=== PATIENT | male | born 1970 | race Caucasian/White ===

== ENCOUNTER 2021-09-06 09:31 | Outpatient (REF) | payer OTHER, SELFPAY ==
[2021-09-06 11:13] LABS: MANUAL DIFF FLAG NO
[2021-09-06 11:16] LABS: Basophils Percent Auto 0.6 % (0-2); Eosinophils Absolute Auto 0.2 X10*3/uL (0.0-0.4); Eosinophils Percent Auto 2.3 % (0-4); Hematocrit 43.4 % (42.0-52.0); Hemoglobin 14.7 g/dl (14.0-18.0); Imm Gran Abs Auto 0.06 X10*3/uL (0.00-0.03); Imm Gran Pct Auto 0.8 % (0.0-0.4); Lymphocytes Absolute Auto 1.6 X10*3/uL (1.2-4.9); Lymphocytes Percent Auto 21.8 % (20-40); Mean Corpuscular HGB Conc 33.9 g/dl (31.0-36.0); Mean Corpuscular Hemoglobin 30.5 pg (27.0-33.0); Mean Platelet Volume 10.6 fL (9.4-12.4); Monocytes Absolute Auto 0.6 X10*3/uL (0.1-1.2); Monocytes Percent Auto 8.2 % (2-11); Neutrophils Absolute Auto 4.7 x10*3/uL (2.0-8.3); Neutrophils Percent Auto 66.3 % (45-73); Platelet Count 272 X10*3/uL (160-400); Red Blood Count 4.82 X10*6/uL (4.60-5.80); Red Cell Distribution Width 11.7 % (11.0-16.0); White Blood Count 7.1 X10*3/uL (4.8-10.8)
[2021-09-06 11:44] LABS: Alanine Aminotransferase 29 U/L (0-40); Albumin Level 4.2 g/dL (3.5-5.0); Alkaline Phosphatase 65 U/L (39-117); Anion Gap 11 (12-20); Aspartate Amino Transferase 22 U/L (5-37); Bilirubin Total 1.3 mg/dL (0.0-1.0); Blood Urea Nitrogen 11 mg/dL (9-16); Calcium 9.4 mg/dL (8.4-10.2); Carbon Dioxide 29 mmol/L (22-29); Chloride 104 mmol/L (96-108); Cholesterol 169 mg/dL; Estimated Glomerular Filt Rate > 60; Glucose Fasting 105 mg/dL (60-99); HDL Cholesterol 47 mg/dL; LDL Cholesterol Calculated 102 mg/dl; Sodium 140 mmol/L (135-145); Triglycerides 102 mg/dL
[2021-09-06 11:53] LABS: TSH reflex Free T4 0.86 uIU/mL (0.32-4.0)
== END 2021-09-06 09:32 | disposition home or self-care (01) ==
LOC: HO.HMGCLDS 09:31
PROVIDERS: Visit Provider Internal Medicine
DX: I10 Essential (primary) hypertension (principal); R07.9 Chest pain, unspecified; Z76.89 Persons encountering health services in other specified circumstances
CPT/HCPCS: 36415; 80053; 80061; 84443; 85025

== ENCOUNTER → 2021-09-29 13:25 | Outpatient (BNVA) | payer OTHER, SELFPAY | PROVIDERS: PCP Internal Medicine; Referring Provider Internal Medicine; Visit Provider Nurse Practitioner Family | DX: K51.90 Ulcerative colitis, unspecified, without complications (principal); I10 Essential (primary) hypertension; Z87.891 Personal history of nicotine dependence | CPT/HCPCS: 99202 ==

== ENCOUNTER 2021-12-01 10:42 | Day surgery (SDC) | payer OTHER, SELFPAY ==
--- NOTE | 2021-11-30 09:49 | HO.ANESPROP2 ---
Documented by User: Hilary Romero NP 11/30/21 09:51 HPI - Anesthesia Eval Consult details Narrative: 51yo M for Colonoscopy PMFSH Active Problems Active Problems: All Active Problems (Updated 11/27/21 @ 14:23 by Lupe Suarez, JOB) Colon cancer screening (Acute) Bilateral renal stones (Acute) Hypertension, essential (Acute) Establishing care with new doctor, encounter for (Acute) Chest pain (Acute) Dyspepsia (Acute) Impaired fasting blood sugar (Acute) Overweight (BMI 25.0-29.9) (Acute) Past Medical History Medical History Hypertension IBS (irritable bowel syndrome) Kidney stones On beta thanh at home Family History Family History Maternal Grandfather Heart attack Maternal Grandmother Heart attack Paternal Grandfather Cancer Other Mental health disorder Substance use disorder Surgical History Surgical History History of carpal tunnel surgery Hx of left knee surgery S/P foot surgery, right Social History Social History Housing: Apartment Alcohol intake: current Alcohol intake frequency: does not drink Patient Tobacco Use Status: Former Tobacco user (30 years ) Years Smoked: 5 years Current occupational status: employed Meds Allergies Allergy/AdvReac Type Severity Reaction Status Date / Time No Known Allergies Allergy Verified 09/29/21 13:31 Exam Exam Date and Time: November 30, 2021 0949 Pertinent Lab Results Pertinent Lab Results: Laboratory Tests 09/06/21 09/06/21 09:38 09:38 WBC 7.1 Hgb 14.7 Hct 43.4 Plt Count 272 Sodium 140 Potassium 4.0 Chloride 104 Carbon Dioxide 29 BUN 11 Creatinine 1.05 Narrative Narrative: EKG 08/2021 NSR @ 84 Assessment and Plan Assessment Anesthesia Assessment: Chart Reviewed Documented by User: Sapna Westfall MD 12/01/21 10:34 [facility] Past Medical History Medical History Hypertension IBS (irritable bowel syndrome) Kidney stones On beta thanh at home Functional capacity: independent ambulation Family History Family History Maternal Grandfather Heart attack Maternal Grandmother Heart attack Paternal Grandfather Cancer Other Mental health disorder Substance use disorder Family history of problems with anesthesia: No Surgical History Surgical History History of carpal tunnel surgery Hx of left knee surgery S/P foot surgery, right History of Problems with Anesthesia: No Social History Social History Housing: Apartment Alcohol intake: current Alcohol intake frequency: does not drink Patient Tobacco Use Status: Former Tobacco user (30 years ) Years Smoked: 5 years Current occupational status: employed Meds Allergies Allergy/AdvReac Type Severity Reaction Status Date / Time No Known Allergies Allergy Verified 09/29/21 13:31 Assessment and Plan Final Anesthetic Review Family History of Problems with Anesthesia: No History of Problems with Anesthesia: No
[2021-12-01 10:50] VITALS: BMI 29.2
[2021-12-01 11:02] VITALS: BP 120/78; PULSE 77; RESP 16; TEMP 36.4; O2SAT 98
[2021-12-01] MEDS: Lactated Ringers 1,000 ML 100 ML IVCONT (11:11)
--- NOTE | 2021-12-01 11:31 | P.HPSUR_ITS ---
Pre-Procedural Eval Section A Date of Service: 12/01/21 Section B Chief Complaint: screening Details of Present Illness: Colon cancer screening Relevant Family History (Specify if Yes): Yes Relevant Social History: Tobacco Use (past smoker) Present Medications: see Short Stay Collaborative assessment Medical History: Significant History (Hypertension IBS (irritable bowel syndrom e) Kidney stones) History of Previous Operations: Relevant previous surgery/procedure and date(s) (Multiple colonoscopies) Allergies: Allergies Allergy/AdvReac Type Severity Reaction Status Date / Time No Known Allergies Allergy Verified 09/29/21 13:31 Review of Systems Sugical H&P ROS: Negative: Constitution, Cardiovascular and Respiratory and Yes, Specify: Gastrointestinal (abdominal pain) Exam Surgical H&P Exam: Normal: Heart, Normal: Lungs, Normal: Extremities and Normal: Abdomen Plan Diagnosis/Plan: Unchanged I have reviewed the history and physical and performed a pertinent physical examination on my patient. No changes have occurred unless specified.
--- NOTE | 2021-12-01 11:38 | P.BOP_ITS ---
Brief Operative Note Date of Service: 12/01/21 Pre-op diagnosis: Colon cancer screening, UC diagnosed at age 22 yrs, lower abdominal pain FH of colon cancer - paternal GF in his 80's Post-op diagnosis: other (Colon polyps, diverticulosis, hemorrhoids, inactive ulcerative colitis) Procedure: COLONOSCOPY TILL CECUM WITH BIOPSIES Consent: Indications for the procedure and potential complications of bleeding, perforation, reaction to medications and missed diagnosis were discussed with the patient and informed consent was obtained. Instrument: Olympus PCF H 190 L variable stiffness pediatric colonoscope Monitoring: Vital signs and clinical assessment, intermittent blood pressure monitoring, continuous EKG monitoring, Pulse oximetry and Carbon Dioxide monitoring were done throughout the procedure. Colon withdrawl time was 21 minutes. Procedure: The patient was placed in the left lateral decubitis position and pre-procedure medications were administered. After a digital rectal examination of the ano-rectum, the video colonoscope was inserted into the rectum and advanced through the colon to the cecum. The colonoscope was slowly withdrawn in a retrograde panoramic fashion and the colon mucosa was carefully examined including a retroflexed view of the rectum. Findings and interventions are described below. Procedure Difficulty: Without difficulty Findings: Terminal Ileum: Distal 5 cms was examined and appeared normal Cecum: A 3-4 mm sessile polyp removed with a cold biopsy Ascending Colon: Normal Transverse Colon: Normal Descending Colon: Mucosal changes suggestive of inactive IBD in the left colon Moderate diverticulosis Sigmoid Colon: Mucosal changes suggestive of inactive IBD in the left colon A 3-4 mm sessile polyp removed with a cold biopsy. Moderate diverticulosis Rectum: Normal Ano-rectum: Moderate internal hemorrhoids Colon preparation: Good after some irrigation Impression and Post Procedure Diagnosis: Colonoscopy Findings: Two small polyps removed Mucosal changes suggestive of inactive IBD and moderate diverticulosisin the left colon. Surveillance biopsies were obtained. Moderate hemorrhoids on retroflexed exam. Plan: Await pathology results Patient has an appointment on 12/15/21 in the GI Clinic with Neela Garrido FNP- BC . Repeat Colonoscopy interval based on path results - in 2 years if polyps are adenomatous and for UC surveillance. Above findings were reviewed with the patient and colon polyps and diverticulosis handouts were given in the discharge area Surgeon: Bijal Awad MD Anesthesia: MAC (Treva Gibbs CRNA) Was an Banking Manager used for this Procedure?: Yes Banking Manager: Macarena Gallegos Estimated blood loss (mL): 0 Pathology: other ( A. CECAL POLYP B. CECAL BX'S R/O DYSPLASIA C. COLON BX'S AT 70 AND 80 CM R/O DYSPLASIA D. COLON BX'S AT 50 AND 60 CM R/O DYSPLASIA E. COLON BX'S AT 30 AND 40 CM R/O DYSPLASIA ) Condition: stable Disposition: PACU
--- NOTE | 2021-12-01 11:41 | W.PM.OPN ---
Operative Note Operative Note Date of Service: 12/01/21 Narrative: Pre-op diagnosis: Colon cancer screening, UC diagnosed at age 22 yrs, lower abdominal pain FH of colon cancer - paternal GF in his 80's Post-op diagnosis:?other (Colon polyps, diverticulosis, hemorrhoids, inactive ulcerative colitis) Procedure: COLONOSCOPY TILL CECUM WITH BIOPSIES Consent: Indications for the procedure and potential complications of bleeding, perforation, reaction to medications and missed diagnosis were discussed with the patient and informed consent was obtained. Instrument: Olympus PCF H 190 L variable stiffness pediatric colonoscope Monitoring: Vital signs and clinical assessment, intermittent blood pressure monitoring, continuous EKG monitoring, Pulse oximetry and Carbon Dioxide monitoring were done throughout the procedure. Colon withdrawl time was 21 minutes. Procedure: The patient was placed in the left lateral decubitis position and pre-procedure medications were administered. After a digital rectal examination of the ano-rectum, the video colonoscope was inserted into the rectum and advanced through the colon to the cecum. The colonoscope was slowly withdrawn in a retrograde panoramic fashion and the colon mucosa was carefully examined including a retroflexed view of the rectum. Findings and interventions are described below. Procedure Difficulty: Without difficulty Findings: Terminal Ileum: Distal 5 cms was examined and appeared normal Cecum:? A 3-4 mm sessile polyp removed with a cold biopsy Ascending Colon:? Normal Transverse Colon:? Normal Descending Colon:? Mucosal changes suggestive of inactive IBD in the left colon? Moderate diverticulosis Sigmoid Colon:? Mucosal changes suggestive of inactive IBD in the left colon A 3-4 mm sessile polyp removed with a cold biopsy.? Moderate diverticulosis Rectum:? Normal Ano-rectum:? Moderate internal hemorrhoids Colon preparation:? Good after some irrigation Impression and Post Procedure Diagnosis: Colonoscopy Findings: Two small polyps removed Mucosal changes suggestive of inactive IBD and moderate diverticulosisin the left colon. Surveillance biopsies were obtained. Moderate hemorrhoids on retroflexed exam. Plan: Await pathology results Patient has an appointment on 12/15/21 in the GI Clinic with Neela Garrido FNP-BC . Repeat Colonoscopy interval based on path results - in 2 years if polyps are adenomatous and for UC surveillance. Above findings were reviewed with the patient and colon polyps and diverticulosis handouts were given in the discharge area Surgeon: Bijal Awad MD Anesthesia:?MAC (Treva Gibbs CRNA) Was an Disease Case Manager used for this Procedure?:?Yes Disease Case Manager:?Macarena Gallegos Estimated blood loss (mL):?0 Pathology:?other ( A. CECAL POLYP? B. CECAL BX'S R/O DYSPLASIA? C. COLON BX'S AT 70 AND 80 CM R/O DYSPLASIA? D. COLON BX'S AT 50 AND 60 CM R/O DYSPLASIA? E. COLON BX'S AT 30 AND 40 CM R/O DYSPLASIA ? ) Condition:?stable Disposition:?PACU
[2021-12-01 12:27] VITALS: BP 83/52; PULSE 99; RESP 16; TEMP 36.4; O2SAT 96
[2021-12-01 12:42] VITALS: BP 86/54; PULSE 69; RESP 18; O2SAT 98
[2021-12-01 12:57] VITALS: BP 104/61; PULSE 93; RESP 18; O2SAT 97
[2021-12-01 13:12] VITALS: BP 109/85; PULSE 65; RESP 20; TEMP 36.1; O2SAT 97
--- NOTE | 2021-12-01 15:07 | HO.POSTANES ---
Post Anesthesia Evaluation Post Anesthesia Evaluation Vital Signs: Vital Signs Temp Pulse Resp BP Pulse Ox 12/01/21 13:12 97.0 F 65 20 109/85 97 12/01/21 12:57 93 18 104/61 97 12/01/21 12:42 69 18 86/54 L 98 12/01/21 12:27 97.6 F 99 16 83/52 L 96 12/01/21 11:02 97.6 F 77 16 120/78 98 Anesthesia: Monitored Mental Status: Awake Pain Control: Satisfactory Nausea/Vomiting: None Hydration: Adequate Anesthesia-Related Issues: No Anes. Related Issues
== END 2021-12-01 12:45 | disposition home or self-care (01) ==
PROVIDERS: PCP Internal Medicine; Visit Provider Internal Medicine Gastroenterology
PROC: 0DJD8ZZ Inspection of Lower Intestinal Tract, Via Natural or Artificial Opening Endoscopic (ICD-10-PCS; CPT 45378; principal; 2021-12-01 11:30)
DX: Z12.11 Encounter for screening for malignant neoplasm of colon (principal); D12.0 Benign neoplasm of cecum; K63.5 Polyp of colon; K51.90 Ulcerative colitis, unspecified, without complications; K57.30 Diverticulosis of large intestine without perforation or abscess without bleeding; K64.8 Other hemorrhoids; K58.2 Mixed irritable bowel syndrome; K21.9 Gastro-esophageal reflux disease without esophagitis; I10 Essential (primary) hypertension; N20.0 Calculus of kidney; Z79.899 Other long term (current) drug therapy; Z87.891 Personal history of nicotine dependence
CPT/HCPCS: 45380; 88305; J2250

== ENCOUNTER → 2022-02-12 09:42 | Outpatient (BNVA) | payer OTHER, SELFPAY | PROVIDERS: PCP Internal Medicine; Referring Provider Internal Medicine; Visit Provider Nurse Practitioner Family | DX: K63.5 Polyp of colon (principal); D12.0 Benign neoplasm of cecum; K58.0 Irritable bowel syndrome with diarrhea; K52.9 Noninfective gastroenteritis and colitis, unspecified; Z87.19 Personal history of other diseases of the digestive system; Z98.890 Other specified postprocedural states | CPT/HCPCS: 99212 ==

== ENCOUNTER 2022-03-09 10:34 | Outpatient (REF) | payer OTHER, SELFPAY ==
--- NOTE | ~2022-03-09 | US_ITS ---
EXAMINATION: US ABDOMEN COMPLETE CLINICAL INFORMATION: Unspecified abdominal pain. COMPARISON: Ultrasound abdomen complete 05/10/2021. TECHNIQUE: Real-time imaging of the abdominal viscera. FINDINGS: PANCREAS: Visualized portions unremarkable. ABDOMINAL AORTA: Visualized portions unremarkable. INFERIOR VENA CAVA: Visualized portions unremarkable. LIVER: Mild diffuse increased echotexture with mild focal fatty sparing adjacent to the gallbladder. GALLBLADDER: Unremarkable. COMMON BILE DUCT: Normal in caliber measuring 0.44 cm in diameter. RIGHT KIDNEY: 12.3 cm. Lower pole anechoic cyst measuring 6.1 cm. No nephrolithiasis or hydronephrosis. Color Doppler showed no abnormal vascular flow. LEFT KIDNEY: 11.5 cm. Lower pole anechoic cyst measuring 4.2 cm. Interpolar echogenic focus measuring 0.3 cm. Lower pole echogenic focus measures 0.4 cm. No hydronephrosis. Color Doppler showed no abnormal vascular flow. SPLEEN: 11.2 cm. Unremarkable. FREE FLUID: None. US/US abdomen complete IMPRESSION: 1. Hepatic steatosis. 2. Bilateral renal cysts demonstrate benign features not requiring follow-up. Nonobstructing left intrarenal calculi.
== END 2022-03-09 10:35 | disposition home or self-care (01) ==
LOC: HO.HMGCX 10:34
PROVIDERS: PCP Internal Medicine; Visit Provider Nurse Practitioner Family
DX: R10.9 Unspecified abdominal pain (principal)
CPT/HCPCS: 76700

== ENCOUNTER 2022-03-23 09:17 | Outpatient (REF) | payer OTHER, SELFPAY ==
--- NOTE | ~2022-03-23 | MM_ITS ---
EXAMINATION: BONE DENSITOMETRY CLINICAL INDICATION: Other specified disorders of bone density and structure. COMPARISON: None (current study represents initial baseline exam). TECHNIQUE: Using a [employer] DXA System (software version: 13.1) manufactured by [employer], dual-energy x-ray absorptiometry was performed of the lumbar spine and left hip. The images are of good technical quality. Summary results are attached. FINDINGS: AP SPINE L1-L4: BMD 1.285 g/cm2, Z-score 0.1, T-score 0.5, normal. LEFT FEMUR, NECK: BMD 1.122 g/cm2, Z-score 0.6, T-score 0.4, normal. LEFT FEMUR, TOTAL: BMD 1.151 g/cm2, Z-score 0.3, T-score 0.3, normal. IDENTIFIED RISK FACTORS: Low calcium intake, secondary osteoporosis, glucocorticoids (chronic). HISTORY OF FRACTURE: None listed. MEDICATIONS: None listed. MM/XR DEXA axial skeleton IMPRESSION: 1. DIAGNOSIS: Normal bone density based on the lowest T-score value of 0.3 in the total femur applying World Health Organization criteria. 2. 10-YEAR FRACTURE RISK PREDICTION, FRAX: According to the guidelines, FRAX calculation should only be performed on patients in the osteopenia bone density category. Therefore, FRAX was not performed on this patient. 3. Treatment Recommendations: NOF guidelines recommend consideration for treatment in postmenopausal women and men age 50 and older presenting with the following: -A hip or vertebral (clinical or morphometric) fracture. -T-score less than or equal to -2.5 at the femoral neck or spine after appropriate evaluation to exclude secondary causes. -Low bone mass at the hip or spine and a 10-year fracture probability by FRAX of greater than or equal to 3% for hip fracture or greater than or equal to 20% for major osteoporotic fracture based on the [place] adapted WHO algorithm. 4. Other Recommendations: All treatment decisions require clinical judgment and consideration of individual patient factors, including patient preferences, comorbidities, previous drug use, risk factors not captured in the FRAX model (e.g. frailty, falls, vitamin D deficiency, increased bone turnover, interval significant decline in bone density) and possible under or overestimation of fracture risk by FRAX. FUTURE SCAN RECOMMENDATION: People with diagnosed cases of osteoporosis or at high risk for fracture should have regular bone mineral density tests. For patients eligible for Medicare, routine testing is allowed once every 2 years. The testing frequency can be increased to one year for patients who have rapidly progressing disease, those who are receiving or discontinuing medical therapy to restore bone mass, or have additional risk factors.
== END 2022-03-23 09:18 | disposition home or self-care (01) ==
LOC: HO.MAMMO 09:17
PROVIDERS: Visit Provider Internal Medicine
DX: Z13.820 Encounter for screening for osteoporosis (principal); M85.851 Other specified disorders of bone density and structure, right thigh; M85.852 Other specified disorders of bone density and structure, left thigh
CPT/HCPCS: 77080

== ENCOUNTER 2022-07-25 09:28 | Outpatient (REF) | payer OTHER, SELFPAY ==
--- NOTE | ~2022-07-25 | XR_ITS ---
EXAMINATION: XR HIP, LEFT CLINICAL INFORMATION: Left hip pain COMPARISON: None TECHNIQUE: Two views of the left hip. FINDINGS: Mild joint space narrowing and mild to moderate osteophyte formation, prominent along the femoral head and neck junction. No fracture or suspicious bone lesion. XR/XR hip LT min 2V IMPRESSION: [id number] left hip osteoarthritis.
[2022-07-25 12:33] LABS: Estimated Average Glucose 103 mg/dL; Hemoglobin A1c % 5.2 %
[2022-07-25 12:36] LABS: Alanine Aminotransferase 25 U/L (0-40); Alkaline Phosphatase 60 U/L (39-117); Anion Gap 11 (12-20); Aspartate Amino Transferase 18 U/L (5-37); Bilirubin Total 1.2 mg/dL (0.0-1.0); Blood Urea Nitrogen 17 mg/dL (9-16); C Reactive Protein < 0.04 mg/dL (< or = 0.50); Carbon Dioxide 27 mmol/L (22-29); Chloride 109 mmol/L (96-108); Cholesterol 159 mg/dL; Estimated Glomerular Filt Rate > 60; Glucose Fasting 104 mg/dL (60-99); HDL Cholesterol 38 mg/dL; LDL Cholesterol Calculated 87 mg/dl; Lipase 16 U/L (8-78); Potassium 3.8 mmol/L (3.3-5.1); Sodium 143 mmol/L (135-145); Total Protein 6.5 g/dL (6.5-8.0); Triglycerides 171 mg/dL
[2022-07-25 12:38] LABS: Folate 14.3 ng/mL (> or = 4.0); Vitamin B12 414 pg/mL (200-900)
[2022-07-25 12:39] LABS: TSH reflex Free T4 0.59 uIU/mL (0.32-4.0)
[2022-07-27 12:03] LABS: Transglutaminase Ab IgG <1.0 U/mL; Transglutaminase IgA 18.6 U/mL
[2022-07-30 15:48] LABS: Vitamin D 25-OH, D2 <4 ng/mL; Vitamin D 25-OH, D3 14 ng/mL; Vitamin D 25-OH, Total 14 ng/mL (30-100)
== END 2022-07-25 09:29 | disposition home or self-care (01) ==
LOC: HO.HMGCLDS 09:28
PROVIDERS: Absent Provider Nurse Practitioner Family; PCP Internal Medicine; Visit Provider Internal Medicine
DX: Z00.01 Encounter for general adult medical examination with abnormal findings (principal); M25.552 Pain in left hip; K58.9 Irritable bowel syndrome, unspecified; K51.90 Ulcerative colitis, unspecified, without complications; R73.01 Impaired fasting glucose; R10.9 Unspecified abdominal pain; R19.7 Diarrhea, unspecified; E55.9 Vitamin D deficiency, unspecified
CPT/HCPCS: 36415; 73502; 80053; 80061; 82306; 82607; 82746; 83036; 83690; 84443; 86140; 86364

== ENCOUNTER 2022-07-28 10:05 | Outpatient (REF) | payer OTHER, SELFPAY ==
[2022-07-28 12:23] LABS: Leukocytes Stool Qualitative NEGATIVE (NEGATIVE)
[2022-07-28 13:31] LABS: Adenovirus F 40/41 Not Detected (Not Detect.); Astrovirus Not Detected (Not Detect.); Campylobacter Not Detected (Not Detect.); Cryptosporidium Not Detected (Not Detect.); Cyclospora cayetanensis Not Detected (Not Detect.); E. coli EAEC Not Detected (Not Detect.); E. coli EPEC Not Detected (Not Detect.); E. coli ETEC Not Detected (Not Detect.); E. coli STEC Not Detected (Not Detect.); Entamoeba histolytica Not Detected (Not Detect.); Giardia lamblia Not Detected (Not Detect.); Norovirus GI/GII Not Detected (Not Detect.); Plesiomonas shigelloides Not Detected (Not Detect.); Rotavirus A Not Detected (Not Detect.); Salmonella Not Detected (Not Detect.); Sapovirus Not Detected (Not Detect.); Shigella sp./EIEC Not Detected (Not Detect.); Vibrio Not Detected (Not Detect.); Vibrio Cholerae Not Detected (Not Detect.); Yersinia enterocolitica Not Detected (Not Detect.)
[2022-08-04 17:24] LABS: Pancreatic Elastase-1 >500 mcg/g
== END 2022-07-28 10:06 | disposition home or self-care (01) ==
LOC: HO.HMGCLDS 10:05
PROVIDERS: PCP Internal Medicine; Visit Provider Nurse Practitioner Family
DX: R10.9 Unspecified abdominal pain (principal); R19.7 Diarrhea, unspecified
CPT/HCPCS: 82656; 87177; 87209; 87507; 89055

== ENCOUNTER → 2022-08-14 09:58 | Outpatient (BNVA) | payer OTHER, SELFPAY | PROVIDERS: PCP Internal Medicine; Visit Provider Nurse Practitioner Family | DX: R10.13 Epigastric pain (principal); K90.0 Celiac disease; K58.0 Irritable bowel syndrome with diarrhea; K51.80 Other ulcerative colitis without complications; Z79.899 Other long term (current) drug therapy | CPT/HCPCS: 99212 ==

== ENCOUNTER 2022-08-20 10:59 | Outpatient (REF) | payer OTHER, SELFPAY | END 2022-08-20 11:00 | disposition home or self-care (01) | LOC: HO.HOSX 10:59 | PROVIDERS: Visit Provider Physician Assistant | DX: Z13.89 Encounter for screening for other disorder (principal) ==

== ENCOUNTER → 2022-11-09 10:33 | Outpatient (BNVA) | payer OTHER, SELFPAY | PROVIDERS: PCP Internal Medicine; Visit Provider Nurse Practitioner Family | DX: K58.0 Irritable bowel syndrome with diarrhea (principal); K90.0 Celiac disease; K51.80 Other ulcerative colitis without complications; R10.13 Epigastric pain | CPT/HCPCS: 99212 ==

== ENCOUNTER 2023-01-22 08:27 | Outpatient (AMB) | payer OTHER, SELFPAY ==
--- NOTE | 2023-01-22 08:27 | A.OFFPC_ITS ---
Vital Signs 01/22/23 08:28 Height 6 ft 2.5 in Weight 210 lb BMI 26.6 BP 112/86 Blood Pressure Location Rt brachial Position Sitting Pulse 64 Pulse Source Pulse Oximeter Pulse Oximetry (%) 99 Oxygen Delivery Method Room Air Intake Visit Reasons: 6 month follow up Allergies Seasonal Allergies Allergy (Mild, Verified 01/22/23 08:28) Hayfever Medication List - Last Reconciled 01/22/23 by Gene Uribe MD albuterol sulfate 90 mcg/actuation (ProAir HFA) 1 inh inhalation QID PRN 30 days cholecalciferol (vitamin D3) 50 mcg PO DAILY cholestyramine (with sugar) 4 gram 4 grams PO QIDACHS 90 days famotidine (Pepcid) 20 mg PO BEDTIME lisinopril 20 mg PO DAILY 90 days mesalamine 2.4 grams (2 x 1.2 gram) PO DAILY metoprolol succinate ER 50 mg PO DAILY 90 days pantoprazole 40 mg PO DAILY Tobacco use date assessed: 01/22/23 Dental Screening Dental Screen Date: 01/22/23 Did you have a dental visit in the last 12 months?: No Did you have a dental problem in the last 6 months where you did not have access to dental care?: No Was dental information given to patient?: No HPI 6 month follow up HPI Details Patient is a 52-year-old gentleman came in today for his regular 6 month follow-up appointment Blood pressure is well controlled at 112/86, patient is on lisinopril 20 mg and metoprolol 50 mg daily. Patient also goes to Gastroenterology [facility] for management of ulcerative colitis He continued to have pain in his left hip patient was booked appointment in August but he tells me that he never got any calls I have given him number to call [facility] and book is own appointment. Patient does have impaired fasting sugar he is due for labs, last set of lab was in July. Vitamin-D supplement is through Gastroenterology Patient will return in 6 months for follow-up appointment [facility] Medical History Celiac disease Colon cancer screening Hypertension IBS (irritable bowel syndrome) Kidney stones On beta thanh at home Ulcerative colitis Surgical History History of carpal tunnel surgery Hx of colonoscopy Hx of left knee surgery S/P foot surgery, right Family History Maternal Grandfather Heart attack Maternal Grandmother Heart attack Paternal Grandfather Cancer Other Mental health disorder Substance use disorder Social History Housing: Apartment Alcohol intake: current Alcohol intake frequency: does not drink Patient Tobacco Use Status: Former Tobacco user Years Smoked: 5 years quit at age 22 e-Cigarette/Vaping Use: Never Used Second Hand Smoke Exposure: No service: No Current occupational status: employed 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 How often do you have a drink containing alcohol?: Never 3. How often do you have six or more drinks on one occasion?: Never Total Score: 0 Score Reviewed/Action Taken: Yes RODERICK-7 AMB Questionnaire RODERICK-7 Date RODERICK - 7 assessed: 07/25/22 Source: Developed by Drs. Tan Dallas, Desiree Oliveira, Valdo Harris and colleagues, with an educational aydee from [employer]. Review of Systems Const Denies chills and Denies fever(s) ENT Denies epistaxis and Denies nasal discharge Card Denies chest pain Resp Denies chest congestion, Denies cough and Denies hemoptysis GI Denies diarrhea and Denies nausea Skin/Breast Denies rash Neuro Reports no additional complaints Psych Reports no additional complaints Endo Reports no additional complaints Physical exam (Primary Care) Vital Signs: Last Vital Signs Pulse 64 01/22/23 08:28 BP 112/86 01/22/23 08:28 Pulse Ox 99 01/22/23 08:28 Oxygen Delivery Method Room Air 01/22/23 08:28 BMI result Body Mass Index 26.6 Tobacco/Smoking Status: Tobacco use Status Tobacco use date assessed 01/22/23 01/22/23 08:31 Patient Tobacco Use Status Former Tobacco user 01/22/23 08:31 e-Cigarette/Vaping Use Never Used 01/22/23 08:31 Thrive Assessment: Date of Thrive Assessment Date Thrive assessed 07/25/22 01/22/23 08:31 Const General: cooperative, comfortable and no acute distress Orientation/consciousness: patient oriented x3 HENMT Head: Yes normocephalic Eyes General: appearance normal, both eyes and all related structures Neck Neck: Yes supple Resp Effort & Inspection: normal respiratory effort, no cough and no stridor Cardio Rhythm: regular rhythm Heart sounds: S1 normal heart sound present and S2 normal heart sound present Skin General skin exam: turgor normal Neuro General: patient oriented x3, tone normal and moves all extremities Extrem Right lower extremity: no edema Left lower extremity: no edema Assessment and Plan Assessment & Plan (1) Hypertension, essential: Code(s): I10 - Essential (primary) hypertension (2) Seasonal asthma: Code(s): J45.998 - Other asthma (3) Impaired fasting blood sugar: Code(s): R73.01 - Impaired fasting glucose (4) Vitamin D deficiency: Code(s): E55.9 - Vitamin D deficiency, unspecified Plan Patient is a 52-year-old gentleman came in today for his regular 6 month follow- up appointment Blood pressure is well controlled at 112/86, patient is on lisinopril 20 mg and metoprolol 50 mg daily. Patient also goes to Gastroenterology [facility] for management of ulcerative colitis He continued to have pain in his left hip patient was booked appointment in August but he tells me that he never got any calls I have given him number to call [facility] and book is own appointment. Patient does have impaired fasting sugar he is due for labs, last set of lab was in July. Vitamin-D supplement is through Gastroenterology Patient will return in 6 months for follow-up appointment Orders: Orders Comprehensive Met. Panel Today E55.9 - Vitamin D deficiency, unspecified, I10 - Essential (primary) hypertension, J45.998 - Other asthma, R73.01 - Impaired fasting glucose Hemoglobin A1c Today E55.9 - Vitamin D deficiency, unspecified, I10 - Essential (primary) hypertension, J45.998 - Other asthma, R73.01 - Impaired fasting glucose Complete Blood Count Auto Diff Today E55.9 - Vitamin D deficiency, unspecified, I10 - Essential (primary) hypertension, J45.998 - Other asthma, R73.01 - Impaired fasting glucose Medications: Refilled lisinopril 20 mg PO DAILY 90 tabs 1RF 90 days metoprolol succinate ER 50 mg PO DAILY 90 tabs 1RF 90 days Coding Level of Care Code Est Pt Level 3 (40307) Diagnoses Hypertension, essential I10 Seasonal asthma J45.998 Impaired fasting blood sugar R73.01 Vitamin D deficiency E55.9
[2023-01-22 08:28] VITALS: BP 112/86; PULSE 64; O2SAT 99; BMI 26.6
== END 2023-01-22 08:56 | disposition home or self-care (01) ==
PROVIDERS: PCP Internal Medicine; Visit Provider Internal Medicine
DX: I10 Essential (primary) hypertension (principal); J45.998 Other asthma; R73.01 Impaired fasting glucose; E55.9 Vitamin D deficiency, unspecified
CPT/HCPCS: 99213

== ENCOUNTER 2024-05-01 12:44 | Outpatient (AMB) | payer OTHER, SELFPAY ==
--- NOTE | 2024-05-01 12:48 | MHC.PC.OV ---
Vital Signs 05/01/24 12:49 Height 6 ft 2.5 in Weight 221 lb BMI 28.0 BP 132/88 Blood Pressure Location Lt brachial Position Sitting Pulse 64 Pulse Source Pulse Oximeter Pulse Oximetry (%) 96 Oxygen Delivery Method Room Air Intake Visit Reasons: BP med follow up Allergies Seasonal Allergies Allergy (Mild, Verified 05/01/24 12:51) Hayfever Medication List - Last Reconciled 05/01/24 by Gene Uribe MD albuterol sulfate 90 mcg/actuation (ProAir HFA) 1 inh inhalation QID PRN 30 days cholecalciferol (vitamin D3) 50 mcg PO DAILY cholestyramine (with sugar) 4 gram 4 grams PO QIDACHS 90 days famotidine (Pepcid) 20 mg PO BEDTIME 90 days lisinopril 20 mg PO DAILY 90 days mesalamine 2.4 grams (2 x 1.2 gram) PO DAILY metoprolol succinate ER 50 mg PO DAILY 90 days pantoprazole 40 mg PO DAILY Tobacco use date assessed: 05/01/24 Dental Screening Dental Screen Date: 05/01/24 Did you have a dental visit in the last 12 months?: Yes Did you have a dental problem in the last 6 months where you did not have access to dental care?: No Was dental information given to patient?: Patient has dentist HPI BP med follow up HPI Details Patient is a 53-year-old gentleman who was last seen summer of last year and he lost his insurance after Patient have history of ulcerative colitis, chronic diarrhea secondary to cholecystectomy, IBS, GERD, hypertension vitamin-D deficiency He is also in need of his gastric medications, patient was not able to see the Gastro as well due to loss of insurance I have filled his medications until he sees rrt He is also due for colonoscopy Blood pressure is slightly elevated as patient has been taking only half of his dose in order to stretch the script He is on lisinopril 20 mg and metoprolol 50 mg Is other medications are pantoprazole 40 mg famotidine 20 mg Cholestyramine And mesalamine Script sent Labs to be done today Follow-up 4 months with physical exam appointment [facility] Medical History Ulcerative colitis Celiac disease On beta thanh at home Colon cancer screening Kidney stones IBS (irritable bowel syndrome) Hypertension Surgical History Hx of colonoscopy Hx of left knee surgery History of carpal tunnel surgery S/P foot surgery, right Family History Maternal Grandfather Heart attack Maternal Grandmother Heart attack Paternal Grandfather Cancer Other Mental health disorder Substance use disorder Social History Housing: Apartment Alcohol intake: current Alcohol intake frequency: does not drink Patient Tobacco Use Status: Former Tobacco user Years Smoked: 5 years quit at age 22 e-Cigarette/Vaping Use: Never Used Second Hand Smoke Exposure: No service: No Current occupational status: employed 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 1. Little interest or pleasure in doing things: not at all 2. Feeling down, depressed, or hopeless: not at all 3. Trouble falling or staying asleep, or sleeping too much: not at all 4. Feeling tired or having little energy: not at all 5. Poor appetite or overeating: not at all 6. Feeling bad about yourself - or that you are a failure or have let yourself or your family down: not at all 7. Trouble concentrating on things, such as reading the newspaper or watching television: not at all 8. Moving or speaking so slowly that other people could have noticed. Or the opposite - being so fidgety or restless that you have been moving around a lot more than usual: not at all 9. Thoughts that you would be better off or of hurting yourself in some way: not at all Total score: 0 Depression Screening Interpretation: Negative Depression Screening Done: Yes 16827 - PHQ-9 Billing: Yes Source: Developed by Drs. Tan Dallas, Desiree Oliveira, Valdo Harris and colleagues, with an educational aydee from [employer]. Thrive Questionnaire Date Thrive assessed: 05/01/24 I am a: Patient What is your living situation today?: I have a steady place to live Within the past 12 months, did the food you bought not last and you didn't have the money to get more?: Never true Within the past 12 months, did you worry whether your food would run out before you got money to buy more?: Never true Do you have trouble paying for medicines?: No Do you have trouble getting transportation to medical appointments?: No Do you have trouble paying your heating and electricity bill?: No Do you have trouble taking care of your child, family member or friend?: No Do you have trouble with day-to-day activities such as bathing, preparing meals, shopping, managing finances, etc.?: No Are you currently unemployed and looking for a job?: No Please select the resources that you would like help with: None Currently or been in a relationship where the following occur: No concerns reported THRIVE Score: 0 AUDIT C Alcohol Use Questionnaire (AUDIT-C) 1. How often do you have a drink containing alcohol?: Never 3. How often do you have six or more drinks on one occasion?: Never Total Score: 0 Score Reviewed/Action Taken: Yes RODERICK-7 AMB Questionnaire RODERICK-7 Date RODERICK - 7 assessed: 05/01/24 Feeling nervous, anxious, or on edge: 0 = Not at all Not being able to stop or control worryin = Not at all Worrying too much about different things: 0 = Not at all Trouble relaxin = Not at all Being so restless that it is hard to sit still: 0 = Not at all Becoming easily annoyed or irritable: 0 = Not at all Feeling afraid as if something awful might happen: 0 = Not at all Total RODERICK-7 score (0-4 normal; 5-9 mild; 10-14 moderate; 15-21 severe): 0 Source: Developed by Drs. Tan Dallas, Desiree Oliveira, Valdo Harris and colleagues, with an educational aydee from [employer]. RODERICK-7 Assessment Billing RODERICK-7 Assessment Tool: RODERICK-7 Assessment 44180 Review of Systems Const Denies chills and Denies fever(s) ENT Denies epistaxis and Denies nasal discharge Card Denies chest pain Resp Denies chest congestion, Denies cough and Denies hemoptysis GI Denies diarrhea and Denies nausea Skin/Breast Denies rash Neuro Reports no additional complaints Psych Reports no additional complaints Endo Reports no additional complaints Physical exam (Primary Care) Vital Signs: Last Vital Signs Pulse 64 05/01/24 12:49 BP 132/88 05/01/24 12:49 Pulse Ox 96 05/01/24 12:49 Oxygen Delivery Method Room Air 05/01/24 12:49 BMI result Body Mass Index 28.0 Tobacco/Smoking Status: Tobacco use Status Tobacco use date assessed 05/01/24 05/01/24 12:52 Patient Tobacco Use Status Former Tobacco user 05/01/24 12:52 e-Cigarette/Vaping Use Never Used 05/01/24 12:52 PHQ-9: PHQ-9 Score PHQ-9: Total score 0 05/01/24 12:52 Depression Screening Interpretation: Negative Thrive Assessment: Date of Thrive Assessment Date Thrive assessed 05/01/24 05/01/24 12:52 Currently or been in a relationship where the following occur: No concerns reported Const General: cooperative, comfortable and no acute distress Orientation/consciousness: patient oriented x3 HENMT Head: Yes normocephalic Eyes General: appearance normal, both eyes and all related structures Neck Neck: Yes supple Resp Effort & Inspection: normal respiratory effort, no cough and no stridor Cardio Rhythm: regular rhythm Heart sounds: S1 normal heart sound present and S2 normal heart sound present Skin General skin exam: turgor normal Neuro General: patient oriented x3, tone normal and moves all extremities Extrem Right lower extremity: no edema Left lower extremity: no edema Coding Level of Care Code Est Pt Level 4 (14679) Complex EM visit Add On G2211 Diagnoses Hypertension, essential I10 Impaired fasting blood sugar R73.01 Dyspepsia R10.13 Celiac disease K90.0 Irritable bowel syndrome with diarrhea K58.0 Irritable bowel syndrome type: with diarrhea Vitamin D deficiency E55.9 Ulcerative colitis with complication, unspecified location K51.919 Ulcerative colitis location: unspecified ulcerative colitis location Digestive disease complication type: unspecified complication Additional Codes RODERICK-7 Assessment Billing - RODERICK-7 Assessment Tool: RODERICK-7 Assessment 16176 ([id number]) Assessment & Plan Assessment & Plan (1) Hypertension, essential: Code(s): I10 - Essential (primary) hypertension Category: Medical (2) Impaired fasting blood sugar: Code(s): R73.01 - Impaired fasting glucose Category: Medical (3) Dyspepsia: Code(s): R10.13 - Epigastric pain Category: Medical (4) Celiac disease: Code(s): K90.0 - Celiac disease Category: Medical (5) IBS (irritable bowel syndrome): Code(s): K58.9 - Irritable bowel syndrome, unspecified Category: Medical Qualifiers: Irritable bowel syndrome type: with diarrhea Qualified Code(s): K58.0 - Irritable bowel syndrome with diarrhea (6) Vitamin D deficiency: Code(s): E55.9 - Vitamin D deficiency, unspecified Category: Medical (7) Ulcerative colitis: Code(s): K51.90 - Ulcerative colitis, unspecified, without complications Category: Medical Qualifiers: Ulcerative colitis location: unspecified ulcerative colitis location Digestive disease complication type: unspecified complication Qualified Code(s): K51.919 - Ulcerative colitis, unspecified with unspecified complications Plan Patient is a 53-year-old gentleman who was last seen summer of last year and he lost his insurance after Patient have history of ulcerative colitis, chronic diarrhea secondary to cholecystectomy, IBS, GERD, hypertension vitamin-D deficiency He is also in need of his gastric medications, patient was not able to see the Gastro as well due to loss of insurance I have filled his medications until he sees rrt He is also due for colonoscopy Blood pressure is slightly elevated as patient has been taking only half of his dose in order to stretch the script He is on lisinopril 20 mg and metoprolol 50 mg Is other medications are pantoprazole 40 mg famotidine 20 mg Cholestyramine And mesalamine Script sent Labs to be done today Patient is prediabetic Follow-up 4 months with physical exam appointment Orders: Orders Complete Blood Count Auto Diff Today E55.9 - Vitamin D deficiency, unspecified, I10 - Essential (primary) hypertension, K58.0 - Irritable bowel syndrome with diarrhea, K90.0 - Celiac disease, R10.13 - Epigastric pain, R73.01 - Impaired fasting glucose Comprehensive Met. Panel Today E55.9 - Vitamin D deficiency, unspecified, I10 - Essential (primary) hypertension, K58.0 - Irritable bowel syndrome with diarrhea, K90.0 - Celiac disease, R10.13 - Epigastric pain, R73.01 - Impaired fasting glucose Hemoglobin A1c Today E55.9 - Vitamin D deficiency, unspecified, I10 - Essential (primary) hypertension, K58.0 - Irritable bowel syndrome with diarrhea, K90.0 - Celiac disease, R10.13 - Epigastric pain, R73.01 - Impaired fasting glucose Vitamin D 25-OH (D2 and D3) Today K51.90 - Ulcerative colitis, unspecified, without complications Vitamin B12 Today K51.90 - Ulcerative colitis, unspecified, without complications Medications: Refilled pantoprazole take one tablet half an hour before breakfast 40 mg PO DAILY 90 tabs 0RF K21.9 - Gastro-esophageal reflux disease without esophagitis famotidine (Pepcid) 20 mg PO BEDTIME 90 tabs 0RF 90 days K21.9 - Gastro-esophageal reflux disease without esophagitis cholestyramine (with sugar) 4 gram 4 grams PO QIDACHS 378 grams 0RF 90 days lisinopril 20 mg PO DAILY 90 tabs 1RF 90 days metoprolol succinate ER 50 mg PO DAILY 30 tabs 0RF 90 days
[2024-05-01 12:49] VITALS: BP 132/88; PULSE 64; O2SAT 96; BMI 28.0
== END 2024-05-01 13:11 | disposition home or self-care (01) ==
PROVIDERS: PCP Internal Medicine; Visit Provider Internal Medicine
DX: I10 Essential (primary) hypertension (principal); K51.919 Ulcerative colitis, unspecified with unspecified complications; R10.13 Epigastric pain; R73.01 Impaired fasting glucose; K90.0 Celiac disease; K58.0 Irritable bowel syndrome with diarrhea; E55.9 Vitamin D deficiency, unspecified

== ENCOUNTER → 2024-05-01 12:44 | Outpatient (BNVA) | payer SELFPAY | PROVIDERS: PCP Internal Medicine; Visit Provider Internal Medicine ==

== ENCOUNTER 2024-05-01 13:04 | Outpatient (REF) | payer OTHER, SELFPAY ==
[2024-05-01 16:21] LABS: MANUAL DIFF FLAG NO
[2024-05-01 16:33] LABS: Basophils Percent Auto 0.5 % (0-2); Eosinophils Absolute Auto 0.2 X10*3/uL (0.0-0.4); Eosinophils Percent Auto 3.3 % (0-4); Hematocrit 42.5 % (42.0-52.0); Hemoglobin 14.7 g/dl (14.0-18.0); Imm Gran Abs Auto 0.05 X10*3/uL (0.00-0.03); Imm Gran Pct Auto 0.9 % (0.0-0.4); Lymphocytes Absolute Auto 1.2 X10*3/uL (1.2-4.9); Lymphocytes Percent Auto 22.5 % (20-40); Mean Corpuscular HGB Conc 34.6 g/dl (31.0-36.0); Mean Corpuscular Hemoglobin 31.1 pg (27.0-33.0); Mean Platelet Volume 10.6 fL (9.4-12.4); Monocytes Absolute Auto 0.6 X10*3/uL (0.1-1.2); Monocytes Percent Auto 10.9 % (2-11); Neutrophils Absolute Auto 3.4 x10*3/uL (2.0-8.3); Neutrophils Percent Auto 61.9 % (45-73); Platelet Count 222 X10*3/uL (160-400); Red Blood Count 4.72 X10*6/uL (4.60-5.80); Red Cell Distribution Width 11.6 % (11.0-16.0); White Blood Count 5.5 X10*3/uL (4.8-10.8)
[2024-05-01 16:43] LABS: Estimated Average Glucose 105 mg/dL; Hemoglobin A1C 123.5818 umol/L; Hemoglobin A1c % 5.3 % (<6.0); Total Hemoglobin (HGBA1C) 3555.3158 umol/L
[2024-05-01 16:45] LABS: Alanine Aminotransferase 31 U/L (0-40); Albumin Level 4.3 g/dL (3.5-5.0); Alkaline Phosphatase 65 U/L (39-117); Anion Gap 12 (12-20); Aspartate Amino Transferase 27 U/L (5-37); Bilirubin Total 0.6 mg/dL (0.0-1.0); Blood Urea Nitrogen 15 mg/dL (9-16); Calcium 9.6 mg/dL (8.4-10.2); Carbon Dioxide 27 mmol/L (22-29); Chloride 106 mmol/L (96-108); Estimated Glomerular Filt Rate > 60; Glucose Random 105 mg/dL (60-115); Sodium 141 mmol/L (135-145); Total Protein 7.2 g/dL (6.5-8.0)
[2024-05-01 17:14] LABS: Vitamin B12 371 pg/mL (200-900)
[2024-05-07 16:15] LABS: Vitamin D 25-OH, D2 <4 ng/mL; Vitamin D 25-OH, D3 28 ng/mL; Vitamin D 25-OH, Total 28 ng/mL (30-100)
== END 2024-05-01 13:05 | disposition home or self-care (01) ==
LOC: HO.HMGCLDS 13:04
PROVIDERS: PCP Internal Medicine; Visit Provider Internal Medicine
DX: I10 Essential (primary) hypertension (principal); R73.01 Impaired fasting glucose; R10.13 Epigastric pain; K90.0 Celiac disease; K58.0 Irritable bowel syndrome with diarrhea; E55.9 Vitamin D deficiency, unspecified; K51.919 Ulcerative colitis, unspecified with unspecified complications; Z79.899 Other long term (current) drug therapy
CPT/HCPCS: 36415; 80053; 82306; 82607; 83036; 85025; 96127; 99212

== ENCOUNTER 2024-11-20 11:21 | Outpatient (AMB) | payer OTHER, SELFPAY ==
--- NOTE | 2024-11-20 11:25 | A.OFFPC_ITS ---
Vital Signs 11/20/24 11:33 Height 6 ft 2.5 in Weight 224 lb 6 oz BMI 28.4 BP 110/88 Blood Pressure Location Rt brachial Position Sitting Pulse 80 Pulse Source Pulse Oximeter Pulse Oximetry (%) 96 Oxygen Delivery Method Room Air Intake Visit Reasons: Annual PE-SEE OA PCP needs to be change Allergies Seasonal Allergies Allergy (Mild, Verified 11/20/24 11:25) Hayfever Medication List - Last Reconciled 11/20/24 by Gene rUibe MD cholestyramine (with sugar) 4 gram 4 grams PO QIDACHS 90 days famotidine (Pepcid) 20 mg PO BEDTIME 90 days lisinopril 20 mg PO DAILY 90 days mesalamine 2.4 grams (2 x 1.2 gram) PO DAILY metoprolol succinate ER 50 mg PO DAILY 90 days pantoprazole 40 mg PO DAILY Ventolin HFA 90 mcg/actuation (albuterol sulfate) 1 inh inhalation QID PRN 30 days NS Tobacco use date assessed: 11/20/24 Dental Screening Dental Screen Date: 11/20/24 Did you have a dental visit in the last 12 months?: Yes Did you have a dental problem in the last 6 months where you did not have access to dental care?: No Was dental information given to patient?: Patient has dentist HPI Annual PE-SEE OA PCP needs to be change HPI Details Physical exam - The patient is a 54-year-old male pres enting for physical exam - The patient reports experiencing dizzi ness over the past couple of weeks, particularly when bending over, which results in extreme lightheadedness. Hypertension: Monitoring of blood pressure at home has not been regular. - The patient is a known case of celiac disease and has been experiencing insurance and medication access issues, leading to recurrent cancellations of appointments, including colonoscopy in 2022. - Patient reports recent concerns regard ing vitamin D deficiency which was identified in April 2024 and wishes to restart supplementation. - Reports significant difficulty with in surance coverage fluctuations, which has impacted access to consistent care. - Blood pressure was noted to be 110/88 during the visit, managed with lisinopril 20 mg and metoprolol, with some concern that low blood pressure may be contributing to dizziness. - Reports severe pain in the elbow over the past couple of weeks, described as very tender to touch and aggravated by lifting activities. Denies any past trauma or injury to the elbow. Health Maintenance - Tetanus immunization is due, last give n in 2007. - Recommendation to resume vitamin D sup plementation due to deficiency. 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 Patient Instructions - Monitor blood pressure at home, especi ally if experiencing dizziness. Cut lisinopril to half a tablet if blood pressure goes below 110 systolic - Begin taking vitamin D supplements as prescribed. - Avoid activities that exacerbate elbow pain; consider use of [id number]-pyoxdyw tennis elbow splint. Patient do not want to see orthopedic at this time - Contact towboat captain for follow- up and medication management. New referral placed - If experiencing positional dizziness, take meclizine as advised. - for impacted cerumen left ear start us ing ear wax drops [id number] for a week Follow-up six-month for blood pressure management Review of Systems - General: No fever no chills - Neurological: No headaches - Ear nose throat: No sore throat no hearing difficulty no ear pain - Cardiovascular: No syncope, no chest pain, no palpitations - Gastrointestinal: No nausea vomiting or diarrhea - Endocrine: No polyuria polydipsia no heat intolerance - Genitourinary: No dysuria - Skin: No new complaints Physical Exam General: Cooperative, healthy appearing, comfortable, no acute distress Orientation: Patient oriented x3 Head: Normal to inspection Ears: Right ear filled with wax, left ear within normal limit visually Nose: Normal external nose present Face and sinus: Normal facial exam Eyes: Appearance normal, extraocular movement intact pupils reactive Neck: Normal visual inspection and supple Respiratory: Normal respiratory effort and able to speak in complete sentences. Clear to auscultation, no stridor Cardiovascular: S1 and S2 are are are GI: Normal to inspection. Soft to palpation and nontender Skin: Turgor normal, no acute findings Neuro: Patient oriented x3, motor sensory intact, balance intact, tandem pass Extremities: Pain in the elbow over lateral epicondyle with pressure, diagnosed as tennis elbow, otherwise normal to inspection [facility] Medical History Ulcerative colitis Celiac disease On beta thanh at home Colon cancer screening Kidney stones IBS (irritable bowel syndrome) Hypertension Surgical History Hx of colonoscopy Hx of left knee surgery History of carpal tunnel surgery S/P foot surgery, right Family History Maternal Grandfather Heart attack Maternal Grandmother Heart attack Paternal Grandfather Cancer Other Mental health disorder Substance use disorder Social History Housing: Apartment Alcohol intake: current Alcohol intake frequency: does not drink Patient Tobacco Use Status: Former Tobacco user Years Smoked: 5 years quit at age 22 e-Cigarette/Vaping Use: Never Used Second Hand Smoke Exposure: No service: No Current occupational status: employed 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 1. Little interest or pleasure in doing things: not at all 2. Feeling down, depressed, or hopeless: not at all 3. Trouble falling or staying asleep, or sleeping too much: not at all 4. Feeling tired or having little energy: not at all 5. Poor appetite or overeating: not at all 6. Feeling bad about yourself - or that you are a failure or have let yourself or your family down: not at all 7. Trouble concentrating on things, such as reading the newspaper or watching television: not at all 8. Moving or speaking so slowly that other people could have noticed. Or the opposite - being so fidgety or restless that you have been moving around a lot more than usual: not at all 9. Thoughts that you would be better off or of hurting yourself in some way: not at all Total score: 0 Depression Screening Interpretation: Negative Depression Screening Done: Yes 44974 - PHQ-9 Billing: Yes Source: Developed by Drs. Tan Dallas, Valdo Darby and colleagues, with an educational aydee from [employer]. Thrive Questionnaire Date Thrive assessed: 11/20/24 I am a: Patient What is your living situation today?: I have a steady place to live Within the past 12 months, did the food you bought not last and you didn't have the money to get more?: Never true Within the past 12 months, did you worry whether your food would run out before you got money to buy more?: Never true Do you have trouble paying for medicines?: No Do you have trouble getting transportation to medical appointments?: No Do you have trouble paying your heating and electricity bill?: No Do you have trouble taking care of your child, family member or friend?: No Do you have trouble with day-to-day activities such as bathing, preparing meals, shopping, managing finances, etc.?: No Are you currently unemployed and looking for a job?: No Are you interested in more education?: No Please select the resources that you would like help with: None Currently or been in a relationship where the following occur: No concerns reported THRIVE Score: 0 AUDIT C Alcohol Use Questionnaire (AUDIT-C) 1. How often do you have a drink containing alcohol?: Never 3. How often do you have six or more drinks on one occasion?: Never Total Score: 0 Score Reviewed/Action Taken: Yes RODERICK-7 AMB Questionnaire RODERICK-7 Date RODERICK - 7 assessed: 11/20/24 Feeling nervous, anxious, or on edge: 0 = Not at all Not being able to stop or control worryin = Not at all Worrying too much about different things: 0 = Not at all Trouble relaxin = Not at all Being so restless that it is hard to sit still: 0 = Not at all Becoming easily annoyed or irritable: 0 = Not at all Feeling afraid as if something awful might happen: 0 = Not at all Total RODERICK-7 score (0-4 normal; 5-9 mild; 10-14 moderate; 15-21 severe): 0 Source: Developed by Drs. Tan Dallas, Valdo Darby and colleagues, with an educational aydee from [employer]. RODERICK-7 Assessment Billing RODERICK-7 Assessment Tool: RODERICK-7 Assessment 96458 Physical exam (Primary Care) Vital Signs: Last Vital Signs Pulse 80 11/20/24 11:33 BP 110/88 11/20/24 11:33 Pulse Ox 96 11/20/24 11:33 Oxygen Delivery Method Room Air 11/20/24 11:33 BMI result Body Mass Index 28.4 Tobacco/Smoking Status: Tobacco use Status Tobacco use date assessed 11/20/24 11/20/24 11:35 Patient Tobacco Use Status Former Tobacco user 11/20/24 11:35 e-Cigarette/Vaping Use Never Used 11/20/24 11:35 PHQ-9: PHQ-9 Score PHQ-9: Total score 0 11/20/24 12:01 Depression Screening Interpretation: Negative Thrive Assessment: Date of Thrive Assessment Date Thrive assessed 11/20/24 11/20/24 11:35 Currently or been in a relationship where the following occur: No concerns reported Immunizations Boostrix Tdap 2.5 Lf unit-8 mcg-5 Lf/0.5 mL intramuscular syringe Performing Provider: Gene Uribe MD [place] [facility] [place] [facility] Administered by: Yury New CMA on 11/20/24 12:01 Dose Route Admin Location Dispensed Lot Number Expiration Date NDC [employer] 0.5 mL IM Left Deltoid 0.5 mL [id number] 01/22/27 25582-855-67 [employer] VIS Given Date VIS Provided VIS Publication Date 11/20/24 Single Vaccine 21 Eligibility Eligibility Date Funding Source Not [facility] Eligible 11/20/24 Private Coding Level of Care Code Est Pt Level 4 (97756) Est Pt Prev Care 40-64y(10927) Diagnoses Encounter for general adult medical examination with abnormal findings Z00.01 Hypertension, essential I10 Celiac disease K90.0 Ulcerative colitis with complication, unspecified location K51.919 Digestive disease complication type: unspecified complication Ulcerative colitis location: unspecified ulcerative colitis location Vitamin D deficiency E55.9 Impaired fasting blood sugar R73.01 Immunizations incomplete Z28.39 Left tennis elbow M77.12 Dizziness R42 Impacted cerumen, left ear H61.22 Additional Codes RODERICK-7 Assessment Billing - RODERICK-7 Assessment Tool: RODERICK-7 Assessment 03503 ([id number]) PHQ-9 - 95433 - PHQ-9 Billing: Yes ([id number]) Assessment & Plan Assessment & Plan (1) Encounter for general adult medical examination with abnormal findings: Code(s): Z00.01 - Encounter for general adult medical examination with abnormal findings Category: Medical (2) Hypertension, essential: Code(s): I10 - Essential (primary) hypertension Category: Medical (3) Celiac disease: Code(s): K90.0 - Celiac disease Category: Medical (4) Ulcerative colitis: Code(s): K51.90 - Ulcerative colitis, unspecified, without complications Category: Medical Qualifiers: Digestive disease complication type: unspecified complication Ulcerative colitis location: unspecified ulcerative colitis location Qualified Code(s): K51.919 - Ulcerative colitis, unspecified with unspecified complications (5) Vitamin D deficiency: Code(s): E55.9 - Vitamin D deficiency, unspecified Category: Medical (6) Impaired fasting blood sugar: Code(s): R73.01 - Impaired fasting glucose Category: Medical (7) Immunizations incomplete: Code(s): Z28.39 - Other underimmunization status Category: Medical Plan Physical exam - The patient is a 54-year-old male presenting for physical exam - The patient reports experiencing dizziness over the past couple of weeks, particularly when bending over, which results in extreme lightheadedness. Hypertension: Monitoring of blood pressure at home has not been regular. - The patient is a known case of celiac disease and has been experiencing insurance and medication access issues, leading to recurrent cancellations of appointments, including colonoscopy in 2022. - Patient reports recent concerns regarding vitamin D deficiency which was identified in April 2024 and wishes to restart supplementation. - Reports significant difficulty with insurance coverage fluctuations, which has impacted access to consistent care. - Blood pressure was noted to be 110/88 during the visit, managed with lisinopril 20 mg and metoprolol, with some concern that low blood pressure may be contributing to dizziness. - Reports severe pain in the elbow over the past couple of weeks, described as very tender to touch and aggravated by lifting activities. Denies any past trauma or injury to the elbow. Health Maintenance - Tetanus immunization is due, last given in 2007. - Recommendation to resume vitamin D supplementation due to deficiency. 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 Patient Instructions - Monitor blood pressure at home, especially if experiencing dizziness. Cut lisinopril to half a tablet if blood pressure goes below 110 systolic - Begin taking vitamin D supplements as prescribed. - Avoid activities that exacerbate elbow pain; consider use of tora-cos-ddphofi tennis elbow splint. Patient do not want to see orthopedic at this time - Contact towboat captain for follow-up and medication management. New referral placed - If experiencing positional dizziness, take meclizine as advised. - for impacted cerumen left ear start using ear wax drops [id number] for a week Follow-up six-month for blood pressure management Orders: Orders Complete Blood Count Auto Diff Today E55.9 - Vitamin D deficiency, unspecified, I10 - Essential (primary) hypertension, K51.919 - Ulcerative colitis, unspecified with unspecified complications, K90.0 - Celiac disease, R73.01 - Impaired fasting glucose, Z00.01 - Encounter for general adult medical examination with abnormal findings Vitamin D 25-OH (D2 and D3) Today E55.9 - Vitamin D deficiency, unspecified, I10 - Essential (primary) hypertension, K51.919 - Ulcerative colitis, unspecified with unspecified complications, K90.0 - Celiac disease, R73.01 - Impaired fasting glucose, Z00.01 - Encounter for general adult medical examination with abnormal findings Comprehensive [place]. Panel Fast Today E55.9 - Vitamin D deficiency, unspecified, I10 - Essential (primary) hypertension, K51.919 - Ulcerative colitis, unspecified with unspecified complications, Z00.01 - Encounter for general adult medical examination with abnormal findings Lipid Panel Today E55.9 - Vitamin D deficiency, unspecified, I10 - Essential (primary) hypertension, K51.919 - Ulcerative colitis, unspecified with unspecified complications, Z00.01 - Encounter for general adult medical examination with abnormal findings TSH reflex Free T4 Today E55.9 - Vitamin D deficiency, unspecified, I10 - Essential (primary) hypertension, K51.919 - Ulcerative colitis, unspecified with unspecified complications, K90.0 - Celiac disease, R73.01 - Impaired fasting glucose, Z00.01 - Encounter for general adult medical examination with abnormal findings TDaP Immunization Today Z23 - Encounter for immunization Referrals Gastroenterology Referral K51.919 - Ulcerative colitis, unspecified with unspecified complications, K90.0 - Celiac disease Medications: New cholecalciferol (vitamin D3) 25 mcg PO DAILY 90 caps 1RF 90 days Refilled lisinopril 20 mg PO DAILY 90 tabs 1RF 90 days metoprolol succinate ER 50 mg PO DAILY 90 tabs 0RF 90 days (9) Left tennis elbow: Code(s): M77.12 - Lateral epicondylitis, left elbow Category: Medical (10) Dizziness: Code(s): R42 - Dizziness and giddiness Category: Medical (11) Impacted cerumen, left ear: Code(s): H61.22 - Impacted cerumen, left ear Category: Medical
[2024-11-20 11:33] VITALS: BP 110/88; PULSE 80; O2SAT 96; BMI 28.4
== END 2024-11-20 12:05 | disposition home or self-care (01) ==
LOC: HO.HMCC 11:22
PROVIDERS: PCP Internal Medicine; Visit Provider Internal Medicine
DX: Z00.00 Encounter for general adult medical examination without abnormal findings (principal); I10 Essential (primary) hypertension; K90.0 Celiac disease; K51.919 Ulcerative colitis, unspecified with unspecified complications; E55.9 Vitamin D deficiency, unspecified; R73.01 Impaired fasting glucose; Z28.39 Other underimmunization status; M77.12 Lateral epicondylitis, left elbow; R42 Dizziness and giddiness; H61.22 Impacted cerumen, left ear; Z23 Encounter for immunization

== ENCOUNTER → 2024-11-20 11:21 | Outpatient (BNVA) | payer OTHER, SELFPAY | PROVIDERS: PCP Internal Medicine; Visit Provider Internal Medicine | DX: Z00.01 Encounter for general adult medical examination with abnormal findings (principal); I10 Essential (primary) hypertension; K90.0 Celiac disease; K51.919 Ulcerative colitis, unspecified with unspecified complications; E55.9 Vitamin D deficiency, unspecified; R73.01 Impaired fasting glucose; M77.12 Lateral epicondylitis, left elbow; R42 Dizziness and giddiness; H61.22 Impacted cerumen, left ear; Z28.39 Other underimmunization status; Z23 Encounter for immunization | CPT/HCPCS: 90471; 90715; 96127; 99212; 99396 ==

== ENCOUNTER 2025-02-24 08:33 | Outpatient (AMB) | payer OTHER, SELFPAY ==
--- NOTE | 2025-02-24 08:53 | MHC.OFFVIS ---
Vital Signs 02/24/25 08:56 Height 6 ft 2 in Weight 225 lb BMI 28.9 BP 126/82 Blood Pressure Location Rt brachial Position Sitting Pulse 64 Pulse Source Pulse Oximeter Pulse Oximetry (%) 97 Oxygen Delivery Method Room Air Intake Visit Reasons: Discuss colo, review meds. FADIA 10/2022. Intake Note: Est pt for mgmt of Celiac + [place] screening. CC: Pt reports that he has not been able to get any of his specialty medications on account of his insurance company frequently switching policy details? Pt states that he has only be able to get his pantoprazole from his pharmacy, which still works OK for him. Pt is having frequent bowel issues however. Ux Researcher Required: No Accompanied by: Self / Same As Patient Allergies Seasonal Allergies Allergy (Mild, Verified 02/24/25 09:03) Hayfever Medication List - Last Reconciled 02/24/25 by OMARI Llamas- cholecalciferol (vitamin D3) 25 mcg PO DAILY 90 days colesevelam (WelChol) 1,250 mg (2 x 625 mg) PO BID famotidine (Pepcid) 20 mg PO BEDTIME 90 days lisinopril 20 mg PO DAILY 90 days mesalamine 2.4 grams (2 x 1.2 gram) PO DAILY metoprolol succinate ER 50 mg PO DAILY 90 days pantoprazole 40 mg PO DAILY Ventolin HFA 90 mcg/actuation (albuterol sulfate) 1 inh inhalation QID PRN 30 days NS HPI HPI Discuss colo, review meds. FADIA 10/2022.: Details: LAST VISIT: 11/09/2022 IBS (irritable bowel syndrome) Continue low FODMAP diet. Celiac disease Patient is doing well avoiding gluten. States that he no longer experiences epigastric pain and bloating. Patient is using caitlyn to assist when shopping for food as well as when she using restaurants Dyspepsia Patient no longer experiences dyspepsia. States that he has been feeling well. Denies any dysphagia or odynophagia. States that pantoprazole is helpful. Symptoms of acid reflux, gastric discomfort and dyspepsia are suppressed. Patient states that he also take famotidine at bedtime Inflammatory bowel disease (ulcerative colitis) Patient reports that he has been taking mesalamine daily and reports to be feeling well. Denies any GI concerning symptoms at this time. He uses cholestyramine which helps him control his stools. I will see him in 6 months, sooner on as needed basis. Patient is agreeable to this plan and verbalizes understanding of instructions. He was given the opportunity to ask questions all questions answered. Plan Refilled famotidine (Pepcid) 20 mg PO BEDTIME 90 tabs 3RF K21.9 - Gastro-esophageal reflux disease without esophagitis mesalamine 2.4 grams (2 x 1.2 gram) PO DAILY 180 tabs 3RF pantoprazole take one tablet half an hour before breakfast 40 mg PO DAILY 90 tabs 2RF K21.9 - Gastro-esophageal reflux disease without esophagitis TODAY'S VISIT: Patient is here today for follow-up and to discuss going for colonoscopy. Patient was unable to go for colonoscopy last year as he changed his insurance. Patient reports that his insurance is not covering his medication. Welchol and mesalamine. Patient reports that when he was taking both of these medication he was feeling great. He was able to enjoy the food. Currently he has been without it for couple weeks and he has been feeling worse. Abdominal bloating and postprandial diarrhea. Was also diagnosed with celiac and is avoiding gluten. Patient is using appt to scan the products he is purchasing. Patient denies melena, hematochezia, unintentional weight loss or ribbon like stools. Patient denies any dyspepsia, dysphagia or odynophagia symptom of acid reflux are suppressed with pantoprazole. Patient has been on pantoprazole for sometimes. He is taking famotidine as needed. Patient denies any issues with anesthesia in the past. No history of sleep apnea. Not on any anticoagulation medication. [facility] Medical History Ulcerative colitis Celiac disease On beta thanh at home Colon cancer screening Kidney stones IBS (irritable bowel syndrome) Hypertension Surgical History Hx of colonoscopy Hx of left knee surgery History of carpal tunnel surgery S/P foot surgery, right Family History Maternal Grandfather Heart attack Maternal Grandmother Heart attack Paternal Grandfather Cancer Other Mental health disorder Substance use disorder Social History Housing: Apartment Alcohol intake: current Alcohol intake frequency: does not drink Patient Tobacco Use Status: Former Tobacco user Years Smoked: 5 years quit at age 22 e-Cigarette/Vaping Use: Never Used Second Hand Smoke Exposure: No service: No Current occupational status: employed 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 Current occupational exposures/hazards: No Cognitive needs: No Hearing needs: No Vision needs: No Review of Systems Const Denies weight gain and Denies weight loss ENT Reports no additional complaints, Denies dysphagia and Denies odynophagia Card Reports no additional complaints Resp Reports no additional complaints GI Denies abdominal pain, Denies belching, Denies melena, Denies bloating, Denies change in bowel habits, Reports constipation (Occasional), Denies dysphagia, Denies excessive flatus, Denies dyspepsia, Denies heartburn, Denies diarrhea, Reports loose stools, Denies nausea, Denies odynophagia and Denies vomiting Reports no additional complaints Musc Reports no additional complaints Neuro Reports no additional complaints Psych Reports no additional complaints Endo Reports no additional complaints Physical Exam Vital Signs: Last Vital Signs Pulse 64 02/24/25 08:56 BP 126/82 02/24/25 08:56 Pulse Ox 97 02/24/25 08:56 Oxygen Delivery Method Room Air 02/24/25 08:56 BMI result Body Mass Index 28.9 Const General: healthy appearing, no acute distress and well developed Nutritional Appearance: well nourished Orientation/consciousness: patient oriented x3 Resp Effort & Inspection: normal respiratory effort, able to speak in complete sentences, no tracheal deviation and symmetric chest movement Auscultation: clear to auscultation bilaterally Cardio Rate: regular rate GI Inspection: Yes normal to inspection and No distended Palpation (GI): Soft to palpation, not firm, nontender and No hepatosplenomegaly present Auscultation: normal bowel sounds General: Yes no CVA tenderness Back/Spine/Pelvis Back: no CVA tenderness Skin General skin exam: elasticity normal, turgor normal and dry skin Neuro General: patient oriented x3 Psych Appearance: grossly normal Mental Status: mental status grossly normal Assessment & Plan Assessment & Plan (1) Dyspepsia: Code(s): R10.13 - Epigastric pain Category: Medical (2) IBS (irritable bowel syndrome): Code(s): K58.9 - Irritable bowel syndrome, unspecified Category: Medical Qualifiers: Irritable bowel syndrome type: with diarrhea Qualified Code(s): K58.0 - Irritable bowel syndrome with diarrhea (3) Colon cancer screening: Code(s): Z12.11 - Encounter for screening for malignant neoplasm of colon Category: Medical (4) Ulcerative colitis: Code(s): K51.90 - Ulcerative colitis, unspecified, without complications Category: Medical Qualifiers: Ulcerative colitis location: unspecified ulcerative colitis location Digestive disease complication type: unspecified complication Qualified Code(s): K51.919 - Ulcerative colitis, unspecified with unspecified complications (5) Celiac disease: Code(s): K90.0 - Celiac disease Category: Medical Plan Will check transglutaminase, creatinine, vitamin B12, folate, vitamin-D level. Occasional postprandial abdominal bloating and right upper quadrant discomfort. Send him for a ultrasound. Patient will be sent for upper endoscopy and colonoscopy. What to expect before during and after procedure discussed with patient. Stressed the importance of good bowel prep and clear liquid diet before procedure. Patient will call us he will not get the patient's from pharmacy. Patient is agreeable to plan of care and verbalizes understanding of instructions. He was given the opportunity to ask questions and all questions answered. Thank you for allowing me to participate in his care Orders: Orders Transglutaminase IgA Today R10.9 - Unspecified abdominal pain Calprotectin, Fecal Today R15.9 - Full incontinence of feces Gliadin Ab Panel Today R10.11 - Right upper quadrant pain Vitamin B12 and Folate Today R19.7 - Diarrhea, unspecified Vitamin D 25-OH (D2 and D3) Today E55.9 - Vitamin D deficiency, unspecified US abdomen complete Today R10.9 - Unspecified abdominal pain Medications: New bisacodyl (Dulcolax (bisacodyl)) take 4 tabs at noon the day before your colonoscopy 20 mg (4 x 5 mg) PO ONCE 4 tabs 0RF constipation 1 day Z12.11 - Encounter for screening for malignant neoplasm of colon polyethylene glycol 3350 (Miralax) As directed by gastroenterology department at [facility] 238 grams PO ONCE 238 grams 0RF Z12.11 - Encounter for screening for malignant neoplasm of colon Refilled mesalamine 2.4 grams (2 x 1.2 gram) PO DAILY 180 tabs 3RF colesevelam (WelChol) 1,250 mg (2 x 625 mg) PO BID 120 tabs 2RF Coding Level of Care Code Est Pt Level 4 (06948) Complex EM visit Add On G2211 Diagnoses Dyspepsia R10.13 Irritable bowel syndrome with diarrhea K58.0 Irritable bowel syndrome type: with diarrhea Colon cancer screening Z12.11 Ulcerative colitis with complication, unspecified location K51.919 Ulcerative colitis location: unspecified ulcerative colitis location Digestive disease complication type: unspecified complication Celiac disease K90.0 Time Spent (min) 40 Comment 25 minutes spent with patient and additional 15 minutes spent reviewing his records
[2025-02-24 08:56] VITALS: BP 126/82; PULSE 64; O2SAT 97; BMI 28.9
== END 2025-02-24 09:31 | disposition home or self-care (01) ==
LOC: HO.HGI 08:34
PROVIDERS: PCP Internal Medicine; Visit Provider Nurse Practitioner Family
DX: K51.919 Ulcerative colitis, unspecified with unspecified complications (principal); R10.13 Epigastric pain; K90.0 Celiac disease
CPT/HCPCS: 99214

== ENCOUNTER → 2025-02-24 08:33 | Outpatient (BNVA) | payer OTHER, SELFPAY | PROVIDERS: PCP Internal Medicine; Visit Provider Nurse Practitioner Family | DX: Z01.818 Encounter for other preprocedural examination (principal); R10.13 Epigastric pain; K58.0 Irritable bowel syndrome with diarrhea; K90.0 Celiac disease | CPT/HCPCS: 99212 ==